=== PATIENT | female | born 1950 | race Caucasian/White ===

== ENCOUNTER 2017-08-13 12:06 | Day surgery (SDC) | payer MEDICARE, BC ==
[~2017-08-13 12:06] MED LIST: APIX5TAB PO; CARV6.25 PO; LISI-519 PO; SPIR25 PO
[2017-08-13] MEDS ORDERED: LACTATED RINGER'S 1000 ML IV PRN (13:00)
[2017-08-13] MEDS ORDERED: METOPROLOL TARTRATE 25 MG TAB PO PRN (13:00)
[2017-08-13] MEDS ORDERED: POVIDONE IODINE 5% (ANTISEPSIS KIT) 4 APPLICATIONS EACH NARE PRN (13:00)
[2017-08-13] MEDS ORDERED: CHLORHEXIDINE GLUCONATE 2 % 1 PACK (2 CLOTHS) TOPICAL PRN (13:00)
[2017-08-13] MEDS ORDERED: SODIUM CHLORID 0.9% 500 ML IV PRN (13:00)
[2017-08-13] MEDS ORDERED: CARV6.252 PO (13:01)
[2017-08-13] MEDS ORDERED: APIX5TAB PO (13:01)
[2017-08-13] MEDS ORDERED: LIVA4TAB PO (13:01)
[2017-08-13] MEDS ORDERED: MONT10TA4 PO (13:01)
[2017-08-13] MEDS ORDERED: SPIR25TA PO (13:01)
[2017-08-13] MEDS ORDERED: CHOL10008 PO (13:01)
[2017-08-13] MEDS ORDERED: MULT400T PO (13:01)
[2017-08-13] MEDS ORDERED: PROPOFOL 200 MG/20 ML AMP ONE (13:46)
--- NOTE | 2017-08-14 09:11 | MR ---
cc: EMILIE PHILLIPS DATE 08/14/2017 INDICATION Atrial fibrillation PROCEDURE PERFORMED DC cardioversion PROCEDURE NOTE After the patient was sedated by anesthesia, 200 joule biphasic shock was delivered and converted the patient into sinus rhythm. She remained stable and was discharged home in stable condition. DIAGNOSIS Successful cardioversion of atrial fibrillation. DISPOSITION Ms. Gallardo will continue her current medical program including antiarrhythmic therapy with Multaq and full anticoagulation. I will see her back for follow up in our office after discharge. MD ANRULFO Brink/NORMA /2:07 PM /9:03 AM [email or web address]
--- NOTE | 2017-08-14 22:49 | EKG ---
Date Performed: 08/13/2017 Time Performed: 14:20:22 PTAGE: 67 years EKG: Sinus rhythm with 1st degree A-V block. Poor R wave progression - probable normal variant Generalized low QRS vol tages Abnormal ECG NO PREVIOUS TRACING DOCTOR: Wyatt Roper Interpretating Date/Time 08/14/2017 22:48:27
--- NOTE | 2017-08-14 23:00 | EKG ---
Date Performed: 08/13/2017 Time Performed: 12:39:56 PTAGE: 67 years EKG: Atrial fibrillation Lateral infarct - age undetermined Possible anteroseptal infarct - age undetermined Inferior T wave changes are nonspecific Generalized low QRS voltages Abnormal ECG NO PREVIOUS TRACING DOCTOR: Wyatt Roper Interpretating Date/Time 08/14/2017 22:59:09
== END 2017-08-13 14:43 | disposition home or self-care (01) ==
LOC: HDOC 12:06 → HDIC 12:06 → HDOC 14:43
PROVIDERS: ATTEND Internal Medicine Interventional Cardiology
DX: I48.91 Unspecified atrial fibrillation (principal)
CPT/HCPCS: 92960; 93005